=== PATIENT | female | born 1955 | race Caucasian/White ===

== ENCOUNTER 2017-07-01 17:20 | Emergency (ER) | payer BC ==
[2017-07-01 17:47] VITALS: BP 144/100; PULSE 96; TEMP 99.3; BMI 28.3
[2017-07-01] MEDS ORDERED: DEXAMETHASONE SOD PHOSPHATE 10 MG/1 ML VIAL IVPUSH ONE (17:50)
--- NOTE | 2017-07-01 17:51 | PDOC ---
History of Present Illness <Nati Saez - Last Filed: 07/01/17 17:53> - General History Source: Patient, Old Records Exam Limitations: No Limitations - History of Present Illness Initial Comments: 07/01/17 18:00 The patient is a 61 year old female, with a significant past medical history of asthma, hypertension, GERD, right breast CA and pyelonephritis, who presents to the emergency department with a sore throat for the past 3 days. The patient additionally reports subjective fevers over the past couple of days. The patient reports taking Tylenol and Motrin with minimal relief. The patient denies cough. Allergies: Sulfa; Penicillins. Past Surgical History: Transphenoidal Hypophysectomy Social History: Non-smoker. Denies alcohol or drug use. PCP: Dr. Peralta <Ruma Tristan - Last Filed: 07/01/17 18:03> - General Chief Complaint: Sore Throat Stated Complaint: SORE THROAT & FEVER Time Seen by Provider: 07/01/17 17:34 Past History - Past Medical History Cancer: Yes (RIGHT BREAST) COPD: Yes (asthma) GI Disorders: Yes (GERD) Disorders: Yes (PYELONEPHRITIS) HTN: Yes Kidney Stones: Yes Thyroid Disease: Yes Other medical history: Migraines, acromegaly - Surgical History Neurologic Surgery: Yes (transphenoidal hypophysectomy) - Psycho/Social/Smoking Cessation Hx Anxiety: No Suicidal Ideation: No Smoking History: Never smoked Have you smoked in the past 12 months: No Hx Alcohol Use: No Drug/Substance Use Hx: No Substance Use Type: None <Nati Saez - Last Filed: 07/01/17 17:53> <Ruma Tristan - Last Filed: 07/01/17 18:03> - Past Medical History Allergies/Adverse Reactions: Allergies Allergy/AdvReac Type Severity Reaction Status Date / Time Sulfa (Sulfonamide Allergy Intermediate Rash Verified 11/03/15 15:37 Antibiotics) Penicillins Allergy Verified 11/12/14 15:07 Home Medications: Ambulatory Orders Atenolol [Tenormin] 25 mg PO BID 11/03/15 Cholecalciferol (Vitamin D3) [Vitamin D3] 1,000 unit PO DAILY 11/03/15 Cinnamon Bark [Cinnamon] 500 mg PO HS 11/03/15 Montelukast Na [Singulair -] 10 mg PO HS 11/03/15 Rabeprazole Sodium [Aciphex] 20 mg PO DAILY 11/03/15 Simvastatin [Zocor -] 5 mg PO HS 11/03/15 Anastrozole [Arimidex -] 1 mg PO DAILY 07/01/17 Azithromycin [Zithromax 250mg Tablets -] 250 mg PO UTDICT #6 tab 07/01/17 Denosumab [Prolia] 60 mg SQ ASDIR 07/01/17 Review of Systems - Review of Systems Able to Perform ROS?: Yes Comments:: 07/01/17 17:58 GENERAL/CONSTITUTIONAL: +Fever. No chills. No weakness. HEAD, EYES, EARS, NOSE AND THROAT: +Sore throat. No change in vision. No ear pain or discharge. CARDIOVASCULAR: No chest pain or shortness of breath. RESPIRATORY: No cough, wheezing, or hemoptysis. GASTROINTESTINAL: No nausea, vomiting, diarrhea or constipation. GENITOURINARY: No dysuria, frequency, or change in urination. MUSCULOSKELETAL: No joint or muscle swelling or pain. No neck or back pain. SKIN: No rash. NEUROLOGIC: No headache, vertigo, loss of consciousness, or change in strength/ sensation. ENDOCRINE: No increased thirst. No abnormal weight change. HEMATOLOGIC/LYMPHATIC: No anemia, easy bleeding, or history of blood clots. ALLERGIC/IMMUNOLOGIC: No hives or skin allergy. <Ruma Tristan - Last Filed: 07/01/17 18:03> *Physical Exam - Vital Signs Last Vital Signs Temp Pulse Resp BP Pulse Ox 99.3 F 96 H 16 144/100 99 07/01/17 17:22 07/01/17 17:22 07/01/17 17:22 07/01/17 17:22 07/01/17 17:22 - Physical Exam Comments: GENERAL: Awake, alert, and fully oriented, in no acute distress HEAD: No signs of trauma EYES: PERRLA, EOMI, sclera anicteric, conjunctiva clear ENT: Auricles normal inspection, TMs +clear effusions B/L, hearing grossly normal. Nares patent, septum deviated to the L. Oropharynx erythematous, with tonsillar hypertrophy. Uvula midline. No visible exudates, however, limited exam based on patient anatomy (Mallampati III). Moist mucosa NECK: Normal ROM, JVD, or masses. +Anterior cervical lymphadenopathy B/L. LUNGS: Breath sounds equal, clear to auscultation bilaterally. No wheezes, and no crackles HEART: Regular rate and rhythm, normal S1 and S2, no murmurs, rubs or gallops ABDOMEN: Soft, nontender, normoactive bowel sounds. No guarding, no rebound. No masses EXTREMITIES: Normal range of motion, no edema. No clubbing or cyanosis. No cords , erythema, or tenderness NEUROLOGICAL: Cranial nerves II through XII grossly intact. Normal speech, normal gait SKIN: Warm, Dry, normal turgor, no rashes or lesions noted. <Nati Saez - Last Filed: 07/01/17 17:53> - Vital Signs Last Vital Signs Temp Pulse Resp BP Pulse Ox 99.3 F 96 H 16 144/100 99 07/01/17 17:22 07/01/17 17:22 07/01/17 17:22 07/01/17 17:22 07/01/17 17:22 <Ruma Tristan - Last Filed: 07/01/17 18:03> *DC/Admit/Observation/Transfer - Discharge Dispostion Admit: No <Nati Saez - Last Filed: 07/01/17 17:53> - Attestations Scribe Attestion: 07/01/17 17:56 Documentation prepared by Ruma Tristan, acting as medical records secretary for Nati Saez MD. <Ruma Tristan - Last Filed: 07/01/17 18:03> Diagnosis at time of Disposition: Pharyngitis Qualifiers: Pharyngitis/tonsillitis etiology: unspecified etiology Qualified Code(s): J02.9 - Acute pharyngitis, unspecified - Discharge Dispostion Disposition: HOME Condition at time of disposition: Stable - Prescriptions Prescriptions: Azithromycin [Zithromax 250mg Tablets -] 250 mg PO UTDICT #6 tab - Referrals Referrals: Matty Peralta [Primary Care Provider] - - Patient Instructions Printed Discharge Instructions: DI for Pharyngitis/Tonsillopharyngitis -- Adult
[2017-07-01] MEDS ORDERED: DEXAMETHASONE SOD PHOSPHATE 10 MG/1 ML VIAL ONE (17:55)
== END 2017-07-01 18:02 | disposition home or self-care (01) ==
LOC: FER 17:20
PROC: 3E033GC Introduction of Other Therapeutic Substance into Peripheral Vein, Percutaneous Approach (ICD-10-PCS; principal; 2017-07-01)
DX: J02.9 Acute pharyngitis, unspecified (principal); Z85.3 Personal history of malignant neoplasm of breast; I10 Essential (primary) hypertension; E07.9 Disorder of thyroid, unspecified; J45.909 Unspecified asthma, uncomplicated; K21.9 Gastro-esophageal reflux disease without esophagitis
CPT/HCPCS: 99281-25

== ENCOUNTER 2021-09-07 17:04 | Emergency (ER) | payer BC ==
[2021-09-07] MEDS ORDERED: ACETAMINOPHEN 325 MG TABLET (FP) PO ONE (17:24)
[2021-09-07] MEDS ORDERED: SODIUM CHLORIDE 1,000 ML IV ONE (17:24)
[2021-09-07 17:27] VITALS: BP 185/99; PULSE 66; TEMP 98.9; BMI 29.2
[2021-09-07] MEDS ORDERED: ACETAMINOPHEN 325 MG TABLET (FP) ONE (17:28)
[2021-09-07 17:47] LABS: BASO % 4.2 % (0-2.0); EOS % 5.7 % (0-4.5); HEMATOCRIT 36.8 % (32.4-45.2); HEMOGLOBIN 12.1 GM/dl (10.7-15.3); LYMPH % 26.4 % (8-40); MCH 28.4 pg (25.7-33.7); MCHC 32.8 g/dl (32.0-36.0); MEAN CELL VOLUME 86.5 fl (80-96); MEAN PLT VOLUME 7.8 fl (7.5-11.1); MONO % 9.7 % (3.8-10.2); PLATELET COUNT 394 10^3/uL (134-434); RBC 4.25 M/mm3 (3.60-5.2); RDW 14.6 % (11.6-15.6); WHITE BLOOD COUNT 5.5 K/mm3 (4.0-10.8)
[2021-09-07 18:13] LABS: ALBUMIN 4.2 g/dl (3.4-5.0); BILIRUBIN,TOTAL 0.4 mg/dl (0.2-1); CREATININE 0.9 mg/dl (0.55-1.3); TOT PROT 7.7 g/dl (6.4-8.2)
[2021-09-07] MEDS ORDERED: KETOROLAC TROMETHAMINE 30 MG/1 ML VIAL IVPUSH ONE (20:38)
[2021-09-07] MEDS ORDERED: KETOROLAC TROMETHAMINE 30 MG/1 ML VIAL ONE (20:39)
== END 2021-09-07 21:14 | disposition home or self-care (01) ==
LOC: FER 17:04
PROC: 3E0333Z Introduction of Anti-inflammatory into Peripheral Vein, Percutaneous Approach (ICD-10-PCS; principal; 2021-09-07)
PROC: 3E0337Z Introduction of Electrolytic and Water Balance Substance into Peripheral Vein, Percutaneous Approach (ICD-10-PCS; 2021-09-07)
DX: R10.9 Unspecified abdominal pain (principal)
CPT/HCPCS: 36415; 74176-TC; 80053; 81003; 81015; 85025; 99284-25

== ENCOUNTER 2022-11-25 10:29 | Emergency (ER) | payer BC ==
[2022-11-25 10:59] VITALS: BMI 24.7
[2022-11-25 11:41] LABS: HEMATOCRIT 36.8 % (32.4-45.2); HEMOGLOBIN 12.6 G/dL (10.7-15.3); MCH 27.2 pg (25.7-33.7); MCHC 34.3 g/dl (32.0-36.0); MEAN CELL VOLUME 79.1 fl (80-96); MEAN PLT VOLUME 7.8 fl (7.5-11.1); PLATELET COUNT 358.4 10^3/uL (134-434); RBC 4.65 10^6/uL (3.60-5.2); RDW 15.9 % (11.6-15.6); WHITE BLOOD COUNT 6.9 10^3/uL (4.0-10.8)
[2022-11-25] MEDS ORDERED: SODIUM CHLORIDE 1,000 ML IV SCH (11:45)
[2022-11-25 11:59] LABS: ALBUMIN 3.7 g/dl (3.4-5.0); BILIRUBIN,TOTAL 0.8 mg/dl (0.2-1); CALCIUM 9.1 mg/dl (8.5-10); CREATININE 0.9 mg/dl (0.55-1.3); TOT PROT 6.6 g/dl (6.4-8.2)
[2022-11-25 12:44] VITALS: TEMP 98
[2022-11-25 13:12] VITALS: BP 158/79; PULSE 63; RESP 18
== END 2022-11-25 13:52 | disposition home or self-care (01) ==
LOC: FER 10:29
DX: R55 Syncope and collapse (principal); R74.8 Abnormal levels of other serum enzymes
CPT/HCPCS: 0241U-QW; 36415; 71045-TC-FY; 80053; 84484; 85027; 93005; 99285-25